=== PATIENT | female | born 1965 | race Two or more races ===

== ENCOUNTER 2021-08-10 07:27 | Emergency (ER) | payer MEDICAID, OTHER ==
[~2021-08-10] VITALS: Ht 165.1 cm; Wt 98.0 kg
[2021-08-10 09:43] LABS: Albumin 3.3 g/dL (3.4-5.0); Calcium 8.6 mg/dL (8.5-10.1); Potassium 4.1 mmol/L (3.5-5.1)
[2021-08-10 09:49] LABS: BUN/Creatinine Ratio 26.6; Bilirubin, Total 0.4 mg/dL (0.2-1.0); Total Protein 7.1 g/dL (6.4-8.2)
[2021-08-10 11:08] LABS: Basophils # (auto) 0 10 ^3/uL (0-0.2); Basophils % (auto) 0.4 % (0.0-2.0); Eosinophils # (auto) 0 10 ^3/uL (0-0.8); Eosinophils % (auto) 0.5 % (0.0-7.0); Hemoglobin 13.7 g/dL (12.2-16.2); Lymphocytes # (auto) 1.7 10 ^3/uL (0.4-5.4); Lymphocytes % (auto) 24.1 % (10.0-50.0); Mean Corpuscular Hemoglobin 28.7 pg (28.0-32.0); Mean Corpuscular Hgb Conc. 33.4 g/dL (32.0-36.0); Mean Corpuscular Volume 85.9 fL (80.0-100.0); Monocytes # (auto) 0.5 10 ^3/uL (0-1.3); Monocytes % (auto) 6.6 % (0.0-12.0); Neutrophils # (auto) 4.8 10 ^3/uL (1.6-8.6); Neutrophils % (auto) 68.4 % (37.0-80.0); Nucleated Red Blood Cells % 0.2 %; Red Blood Cells 4.77 10^6/uL (4.0-5.20)
[2021-08-10 14:34] VITALS: BP 154/87
== END 2021-08-10 14:35 | disposition home or self-care (01) ==
LOC: ER 07:27
DX: E46 Unspecified protein-calorie malnutrition (principal); H57.89 Other specified disorders of eye and adnexa; I10 Essential (primary) hypertension; Z68.36 Body mass index [BMI] 36.0-36.9, adult
CPT/HCPCS: 36415; 70450; 80053; 84484; 85025; 93005

== ENCOUNTER 2024-07-16 12:09 | Emergency (ER) | payer MEDICAID ==
[~2024-07-16] VITALS: Ht 165.1 cm; Wt 93.5 kg
[2024-07-16 13:48] VITALS: BP 159/100; PULSE 55; RESP 16; TEMP 99.9; O2SAT 96
[2024-07-16] MEDS: LIDOCAINE 1% HCL (LOCAL ANESTH.) INJ 20ML MDV IJ ONE (14:29)
[2024-07-16] MEDS: TETANUS-DIPTH-ACEL PERTUSSIS 0.5ML SYR Tdap IM ONE (14:43)
== END 2024-07-16 14:52 | disposition home or self-care (01) ==
LOC: ER 12:09
DX: S01.81XA Laceration without foreign body of other part of head, initial encounter (principal); I10 Essential (primary) hypertension; Z98.890 Other specified postprocedural states; W18.39XA Other fall on same level, initial encounter; Y93.01 Activity, walking, marching and hiking; Y92.89 Other specified places as the place of occurrence of the external cause; Y99.8 Other external cause status
CPT/HCPCS: 12011; 90471; 90715; 99283; J2003

== ENCOUNTER 2024-07-26 16:25 | Emergency (ER) | payer MEDICAID ==
[~2024-07-26] VITALS: Ht 162.6 cm; Wt 94.2 kg
[2024-07-26 17:05] VITALS: BP 147/81; PULSE 58; RESP 18; TEMP 98.1; O2SAT 97
== END 2024-07-26 17:35 | disposition home or self-care (01) ==
LOC: ER 16:25
DX: S01.81XD Laceration without foreign body of other part of head, subsequent encounter (principal); I10 Essential (primary) hypertension; Z98.890 Other specified postprocedural states; X58.XXXD Exposure to other specified factors, subsequent encounter

== ENCOUNTER 2025-04-17 20:07 | Emergency (ER) | payer MEDICAID ==
[~2025-04-17] VITALS: Ht 165.1 cm; Wt 103.9 kg
[2025-04-17 20:34] VITALS: BP 157/80; PULSE 71; RESP 17; TEMP 98.4; O2SAT 94
--- NOTE | 2025-04-17 20:43 | ED.PDOC ---
Delbert. trauma (HPI) HPI Comments Patient is a morbidly obese 60 y.o female presents to the ED for a chief complaint of left sided rib pain and associated with right shoulder pain s/p mechanical fall 3 days ago. Patient reports she was outside her home watering her plants, stepped on a block and tripped landing on her left rib then onto her right shoulder. Patient denies any LOC, head injuries nausea vomiting, or lightheadedness. Patient reports she is not on any blood thinners. Patient has pain on palpation. Vital signs were stable on arrival. 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 Hx Family History Family History: Reviewed,noncontributory to illness Social History Smoker: Non-Smoker Alcohol: Denies ETOH Use Drugs: Denies Drug Use Lives In: Home Constitutional: denies: chills, diaphoresis, fatigue, fever, malaise, sweats, weakness, others EENTM: denies: blurred vision, double vision, ear bleeding, ear discharge, ear drainage, ear pain, ear ringing, eye pain, eye redness, hearing loss, mouth pain, mouth swelling, nasal discharge, nose bleeding, nose congestion, nose pain, photophobia, tearing, throat pain, throat swelling, voice changes, others Respiratory: denies: cough, hemoptysis, orthopnea, SOB at rest, shortness of breath, SOB with excertion, stridor, wheezing, others Gastrointestinal: denies: abdomen distended, abdominal pain, blood streaked bowels, constipated, diarrhea, dysphagia, difficulty swallowing, hematemesis, melena, nausea, poor appetite, poor fluid intake, rectal bleeding, rectal pain, vomiting, others Genitourinary: denies: abnormal vagina bleeding, burning, dyspareunia, dysuria, flank pain, frequency, hematuria, incontinence, pain, , vagina discharge, urgency, others Neurological: denies: dizziness, fainting, headache, left sided numbness, left sided weakness, numbness, paresthesia, pre-existing deficit, right sided numbness, right sided weakness, seizure, speech problems, tingling, tremors, weakness, others Musculoskeletal: reports: others (left ribs and right shoulder pain ); denies: back pain, gout, joint pain, joint swelling, muscle pain, muscle stiffness, neck pain Integumetry: denies: bruises, change in color, change in hair/nails, dryness, laceration, lesions, lumps, rash, wounds, others Allergic/Immunocompromised: denies: Difficulty Healing, Frequent Infections, Hives, Itching, others Hematologic/Lymphatic: denies: anemia, blood clots, easy bleeding, easy bruising, swollen glands, others Endocrine: denies: excessive hunger, excessive sweating, excessive thirst, excessive urination, flushing, intolerance to cold, intolerance to heat, unexplained weight gain, unexplained weight loss, others Psychiatric: denies: anxiety, bipolar disorder, depression, hopeless, panic disorder, schizophrenia, sleepless, suicidal, others All Other Systems: Reviewed and Negative Physical Exam General Appearance: Moderate Distress ([id number] distress due to left- sided rib pain and right-sided shoulder pain concerns.), Obese HEENT: Normal ENT Inspection, Pharynx Normal, TMs Normal Neck: Full Range of Motion, Non-Tender, Normal, Normal Inspection Respiratory: Chest Non-Tender, Lungs Clear, No Accessory Muscle Use, No R espiratory Distress, Normal Breath Sounds Cardiovascular: No Edema, No JVD, No Murmur, No Gallop, Normal Peripheral Pulses, Regular Rate/Rhythm Breast Exam: Deferred Gastrointestinal: No Organomegaly, Non Tender, No Pulsatile Mass, Normal Bowel Sounds, Soft Genitalia: Deferred Pelvic: Deferred Rectal: Deferred Extremities: Other (Left-sided rib reveals tenderness to palpation of the midclavicular line between ribs six through nine. No crepitus noted. Very mild ecchymosis noted. Right shoulder is diffusely tender to palpation on anterior and lateral aspect. [id number] reduced range of motion. Distal neurovascularly intact. No crepitus.) Neurologic: Alert, No Motor Deficits, Normal Affect, Normal Mood, No Sensory Deficits Cerebellar Function: Normal Reflexes: Normal Skin: Dry, Normal Color, Warm Lymphatic: No Adenopathy Was a procedure done? Was a procedure done?: No Differential Diagnosis Multiple Trauma: Fractures, Other (strain, sprain, dislocations , rib contusion, shoulder contusion) X-Ray, Labs, Meds, VS Vital Signs Date Time Temp Pulse Resp B/P (MAP) Pulse Ox O2 Delivery O2 Flow Rate FiO2 04/17/25 20:34 98.4 71 17 157/80 (105) 94 98.4 X-Ray, Labs, Meds, VS Comment All studies performed in the ED were evaluated by me personally. Imaging studies of the shoulder were unremarkable for any acute shoulder process. Imaging of the left sided rib was unremarkable for any fractures. Patient sustained some contusions related to her fall event. Advised Tylenol and or M otrin as needed for pain relief as well as ice therapy. Time of 1ST Reevaluation: 22:13 Reevaluation 1ST: Improved Consultation: PCP Patient Education/Counseling: Diagnosis, Treatment, Prognosis Family Education/Counseling: Diagnosis, Treatment, No Family Present Departure 1 Departure Time of Disposition: 22:14 Impression: Primary Impression: Shoulder contusion Additional Impressions: Rib contusion Fall Disposition: HOME / SELF CARE / HOMELESS Condition: Stable Additional Instructions: Advised patient utilize pain medication as needed for symptomatic relief as well as ice therapy. e-Prescriptions Hydrocodone-Acetaminophen (Hydrocodone Bitartrate/AC 5-325 mg) 1 Tab Tab 1 TAB PO Q6HP PRN, #12 TAB Prov: IMANI ALMANZA PAC 04/17/25 Ibuprofen Micronized (Ibuprofen) 800 Mg Tab 800 MG PO Q8HP PRN, #20 TAB Prov: IMANI ALMANZA PAC 04/17/25 Discharged With: Self, Friend Critical Care Note Critical Care Time?: No Stability Stability form required: No I personally scribed for IMANI ALMANZA PAC ([email or web address]) on 04/17/25 at 20:43. Electronically submitted by Lauren Siddiqi ([facility]). IMANI ALMANZA PAC Apr 17, 2025 20:43
--- NOTE | 2025-04-17 21:19 | DVH ---
EXAMINATION: XY L RIB X RAY INDICATION: Fall/trauma COMPARISON: None TECHNIQUE: Frontal view of the chest and <<>> views of the <<>> ribs history FINDINGS: No displaced left-sided rib fractures identified. Elevation of the right hemidiaphragm with subsegmen valerie atelectasis. IMPRESSION: 1. No left-sided rib fractures. 2. Right basilar subsegmental atelectasis
--- NOTE | 2025-04-17 21:20 | DVH ---
XY R SHOULDER 2+ VIEW XRAY INDICATION: Fall/trauma TECHNICAL DATA: 3 views were obtained of the right shoulder. COMPARISON: None FINDINGS: There is no fracture or focal bone abnormality. The glenohumeral joint is normally maintained. The ac romioclavicular joint appears normal. IMPRESSION: 1. No acute fracture or dislocation of the right shoulder.
[2025-04-17] MEDS ORDERED: IBUP-1455 PO (22:15)
[2025-04-17] MEDS ORDERED: HYDR-4902 PO (22:15)
[2025-04-17] MEDS: KETOROLAC TROMETH 60MG/2ML VIAL IM ONE (23:12)
[2025-04-17] MEDS: HYDROcodone-ACET 5/325MG TAB PO ONE (23:12)
== END 2025-04-17 23:20 | disposition home or self-care (01) ==
LOC: ER 20:07
DX: S20.219A Contusion of unspecified front wall of thorax, initial encounter (principal); S40.011A Contusion of right shoulder, initial encounter; I10 Essential (primary) hypertension; E66.01 Morbid (severe) obesity due to excess calories; Z68.38 Body mass index [BMI] 38.0-38.9, adult; Z98.890 Other specified postprocedural states; W01.0XXA Fall on same level from slipping, tripping and stumbling without subsequent striking against object, initial encounter; Y93.89 Activity, other specified; Y92.89 Other specified places as the place of occurrence of the external cause; Y99.8 Other external cause status
CPT/HCPCS: 71101; 73030; 96372; 99284; J1885